=== PATIENT | female | born 1945 | race Caucasian/White ===

== ENCOUNTER → 2016-08-04 | Outpatient (CLI) | payer MEDICARE, MEDICAID | END | disposition home or self-care (01) | LOC: PCVCIMAG 07:58 | PROVIDERS: ATTEND Internal Medicine Cardiovascular Disease | DX: I77.9 Disorder of arteries and arterioles, unspecified (principal); I65.23 Occlusion and stenosis of bilateral carotid arteries; I73.9 Peripheral vascular disease, unspecified; I25.10 Atherosclerotic heart disease of native coronary artery without angina pectoris; I10 Essential (primary) hypertension; E78.00 Pure hypercholesterolemia, unspecified | CPT/HCPCS: 93005; 93880; 93923; 93925; G0463; 93924 ==

== ENCOUNTER → 2017-02-02 | Outpatient (CLI) | payer MEDICARE, MEDICAID ==
[~2017-02-02] MED LIST: REGADENOSON 0.4 MG/5 ML DISP.SYRIN. IV ONE
--- NOTE | 2017-02-02 11:48 | PCVCIMAG ---
APPROVED REPORT Exam: Nuclear Stress Test Indication: Dyspnea Patient Location: Out-Patient Stress Nurse: Naomi Bender RN, Nakita Greenfield RN [place] Tech:Tereso SilvaKEYLAB Ht: 5 ft 3 in Wt: 154 lbs BSA: 1.73 m2 HR: 78 bpm BP: 146/76 mmHg BMI: 27.2 Rhythm: NSR Medical History Medical History: Age, Hyperlipidemia, PVD,CVD, CAD, COPD, Former Smoker, HTN, Medications: ASA, Plavix, Protonix, Metoprolol (held 24 hours) Amlodipine, Lisinopril, Atorvastatin Allergies: NKDA Previous Cardiac Procedures: PCI Pretest Chest Pain Characteristics: No chest pain Exercise History: Sedentary Stress Test Details Stress Test: Pharmacologic stress testing performed using 0.4 mg of regadenoson per 5 mL given IV over 10 seconds. Reason for pharmacologic stress test: physical limitation. HR Resting HR: 78 bpmMax Heart Rate (APMHR): 149 bpm Max HR Achieved: 117 bpmTarget HR (85% APMHR): 126 bpm % of APMHR: 78 Recovery HR: 103 bpm BP Resting BP: 146/76 mmHg Max BP: 151/60 mmHg Recovery BP: 146/66 mmHg ECG Resting ECG: Sinus Rhythm Stress ECG: Sinus Rhythm ST Change: Non-ischemic Maximum ST Deviation: 0.5 mm Arrhythmia: None Recovery ECG: Sinus Rhythm Recovery Arrhythmia: None Clinical Reason for Termination: Completed protocol Stress Symptoms: Dyspnea Exercise duration: min 55 sec Exercise capacity: 1.0 METs Symptoms resolved during recovery. [place] EXAM: Myocardial Perfusion REST/STRESS Imaging Protocol: Rest Tc-99m/Stress Tc-99m 1 day Resting Data Rest SPECT myocardial perfusion imaging was performed in supine position 45 minutes following the intravenous injection of 11.6 mCi of Tc-99m Sestamibi. Time of rest injection: 0900 Date: 02/02/2017 Pharmacologic Stress Pharmacologic stress test was performed by injecting Regadenoson 0.4 mg IV push followed by the intravenous injection of 36 mCi of Tc-99m Sestamibi. Time of stress injection: 1015 Date: 02/02/2017 The images were gated to evaluate regional wall motion and calculate left ventricular ejection fraction. Study Quality Study: Good Study Data Post stress, the left ventricular ejection was 76%.. SSS: 2 SRS: 4 SDS: 0 TID = 0.94. Perfusion There is a small area of mildly reduced uptake in the distal segment of the inferoapical wall which is seen on the stress images as well as the resting images. This area thickens and moves normally and is most consistent with myocardial scar. Wall Motion Normal left ventricular wall motion. Clinical Findings: Nondiagnostic EKG Findings: Nonischemic Nuclear Conclusion There is a mild fixed defect in the distal inferoapical segment, possible incomplete infarct. This study is of low probability for inducible ischemia. There is normal global and segmental LV systolic function.
== END | disposition home or self-care (01) ==
LOC: PCVCIMAG 08:45
PROVIDERS: ATTEND Internal Medicine Cardiovascular Disease
DX: I25.10 Atherosclerotic heart disease of native coronary artery without angina pectoris (principal); I73.9 Peripheral vascular disease, unspecified; E78.5 Hyperlipidemia, unspecified; I10 Essential (primary) hypertension; J44.9 Chronic obstructive pulmonary disease, unspecified; K52.9 Noninfective gastroenteritis and colitis, unspecified; K21.9 Gastro-esophageal reflux disease without esophagitis; Z79.82 Long term (current) use of aspirin; Z87.891 Personal history of nicotine dependence; Z79.899 Other long term (current) drug therapy; Z90.49 Acquired absence of other specified parts of digestive tract; Z90.710 Acquired absence of both cervix and uterus; Z90.722 Acquired absence of ovaries, bilateral
CPT/HCPCS: 78452; 93017; A9500; G0463; J2785

== ENCOUNTER → 2017-11-15 | Outpatient (CLI) | payer MEDICARE, MEDICAID | END | disposition home or self-care (01) | LOC: PCVCIMAG 16:00 | DX: I25.10 Atherosclerotic heart disease of native coronary artery without angina pectoris (principal); I10 Essential (primary) hypertension; E78.00 Pure hypercholesterolemia, unspecified; K21.9 Gastro-esophageal reflux disease without esophagitis; I35.1 Nonrheumatic aortic (valve) insufficiency; Z79.899 Other long term (current) drug therapy; Z79.82 Long term (current) use of aspirin; Z87.891 Personal history of nicotine dependence | CPT/HCPCS: 93005; 93306; G0463 ==

== ENCOUNTER → 2017-12-05 | Outpatient (CLI) | payer MEDICARE, MEDICAID | END | disposition home or self-care (01) | LOC: PCVCIMAG 14:25 | DX: I73.9 Peripheral vascular disease, unspecified (principal); I77.9 Disorder of arteries and arterioles, unspecified; I25.10 Atherosclerotic heart disease of native coronary artery without angina pectoris; I10 Essential (primary) hypertension; J44.9 Chronic obstructive pulmonary disease, unspecified; E78.00 Pure hypercholesterolemia, unspecified; I35.1 Nonrheumatic aortic (valve) insufficiency; I70.0 Atherosclerosis of aorta; I71.2 Thoracic aortic aneurysm, without rupture; F17.210 Nicotine dependence, cigarettes, uncomplicated; Z79.899 Other long term (current) drug therapy; Z79.82 Long term (current) use of aspirin | CPT/HCPCS: 93923; 93925; G0463 ==

== ENCOUNTER → 2018-03-21 | Outpatient (CLI) | payer MEDICARE, MEDICAID | END | disposition home or self-care (01) | LOC: PCVCCLINIC 13:32 | PROVIDERS: ATTEND Nuclear Medicine Nuclear Cardiology | DX: I73.9 Peripheral vascular disease, unspecified (principal); I71.2 Thoracic aortic aneurysm, without rupture; I77.9 Disorder of arteries and arterioles, unspecified; I10 Essential (primary) hypertension; I25.10 Atherosclerotic heart disease of native coronary artery without angina pectoris; J44.9 Chronic obstructive pulmonary disease, unspecified; E78.00 Pure hypercholesterolemia, unspecified; F17.200 Nicotine dependence, unspecified, uncomplicated; Z79.82 Long term (current) use of aspirin | CPT/HCPCS: G0463 ==

== ENCOUNTER → 2018-12-21 | Outpatient (CLI) | payer MEDICARE, MEDICAID ==
--- NOTE | 2018-12-21 10:27 | PCVCIMAG ---
EXAM: BILATERAL CAROTID DUPLEX INDICATION: Carotid Occlusive Disease. FINDINGS: Doppler Measurements (centimeters per second): RIGHT: Peak CCA-110, Peak ECA-105, Diastolic ICA-23, Peak ICA-118, ICA/CCA Ratio-1.3. LEFT: Peak CCA-100, Peak ECA-137, Diastolic ICA-17, Peak ICA-163, ICA/CCA Ratio-1.6. RIGHT CAROTID: The carotid bulb has moderate plaque. The proximal internal carotid artery shows <40% stenosis. The common carotid artery shows no significant stenosis. The external carotid artery shows no significant stenosis. LEFT CAROTID: The carotid bulb has moderate plaque. The proximal internal carotid artery shows 60% stenosis. The common carotid artery shows no significant stenosis. The external carotid artery shows 40% stenosis. Antegrade flow in both vertebral arteries. IMPRESSION: <40% stenosis of the right internal carotid artery with moderate plaque. 60% stenosis of the left internal carotid artery with moderate plaque. No change since July 2016 study. LOC:[id number]
== END | disposition home or self-care (01) ==
LOC: PCVCCLINIC 09:25
PROVIDERS: ATTEND Nuclear Medicine Nuclear Cardiology
DX: I65.23 Occlusion and stenosis of bilateral carotid arteries (principal); I77.9 Disorder of arteries and arterioles, unspecified; F17.200 Nicotine dependence, unspecified, uncomplicated; E78.00 Pure hypercholesterolemia, unspecified
CPT/HCPCS: 93880; G0463

== ENCOUNTER → 2019-05-01 | Outpatient (CLI) | payer MEDICARE, MEDICAID ==
--- NOTE | 2019-05-01 11:48 | PCVCIMAG ---
APPROVED REPORT Imaging Protocol: Rest Tc-99m/Stress Tc-99m 1 day Study performed: 05/01/2019 09:30:12 Indication: Chest Pain, Dyspnea Patient Location: Out-Patient Stress Nurse: Nakita Greenfield RN, Naomi Bender RN [place] Tech:César SOFIA Blanco Ht: 5 ft 4 in Wt: 167 lbs BSA: 1.81 m2 HR: 83 bpm BP: 175/75 mmHg BMI: 28.66 Rhythm: Sinus Rhythm Medical History Medical History: PCI 2008, Age, HLP, HTN, PVD, COPD, CAD, Former Smoker Medications: Amlodipine, ASA, Atorvastatin, Plavix, Lisinopril, Metoprolol Allergies: No known drug allergies Exercise History: Sedentary Physical Disabilities: Back Meds Held (24 hrs): Metoprolol Resting Data Rest SPECT myocardial perfusion imaging was performed in supine position 45 minutes following the intravenous injection of 10.5 mCi of Tc-99m Sestamibi. Time of rest injection: 0855 Date: 05/01/2019 Administration Route: IV Administration Site: Right AC Pharmacologic Stress Pharmacologic stress test was performed by injecting Regadenoson 0.4 mg IV push over 10-15 seconds immediately followed by the intravenous injection of 32.4 mCi of Tc-99m Sestamibi. Time of stress injection: 1000 Date: 05/01/2019 Administration Route: IV Administration Site: Right AC Gated Stress SPECT was performed 45 minutes after stress injection. The images were gated to evaluate regional wall motion and calculate left ventricular ejection fraction. Stress Test Details Stress Test: Pharmacologic stress testing performed using 0.4 mg of regadenoson per 5 mL given IV over 10 seconds. Reason for pharmacologic stress test: chronic low back pain. HRMax Heart Rate (APMHR): 147 bpm Resting HR: 83 bpmTarget HR (85% APMHR): 124 bpm Max HR Achieved: 113 bpm % of APMHR: 76 Recovery HR: 106 bpm BP Resting BP: 175/75 mmHg Max BP: 155/72 mmHg Recovery BP: 156/72 mmHg ECG Resting ECG: Sinus Rhythm Stress ECG: Sinus Tachycardia ST Change: Non-ischemic Arrhythmia: VPC's Recovery ECG: Sinus Tachycardia Clinical Reason for Termination: Completed protocol Stress Symptoms: Dyspnea Symptoms resolved with caffeine. Study Quality Study: Good Artifact: Mild Diaphragmatic artifact Study Data Post stress, the left ventricular ejection was 70%.. SSS: 0 SRS: 1 SDS: 0 TID = 0.84. Perfusion There is a small area of mildly reduced uptake in the apical segment of the inferior wall which is seen on the stress images as well as the resting images. This area thickens and moves normally and is most consistent with attenuation artifact. Wall Motion Normal left ventricular wall motion. Nuclear Conclusion ECG Findings: negative for ischemia Clinical Findings: non-diagnostic Nuclear Findings: negative for ischemia Exercise Capacity: not assessed Left Ventricular Function: normal Risk Study: low This study is of low probability for inducible ischemia or prior infarct. Normal global and segmental LV systolic function. Artifact: Mild Diaphragmatic artifact
== END | disposition home or self-care (01) ==
LOC: PCVCIMAG 09:04
PROVIDERS: ATTEND Internal Medicine Cardiovascular Disease
DX: I25.10 Atherosclerotic heart disease of native coronary artery without angina pectoris (principal); I10 Essential (primary) hypertension; R06.00 Dyspnea, unspecified; E78.00 Pure hypercholesterolemia, unspecified; I73.9 Peripheral vascular disease, unspecified; Z79.82 Long term (current) use of aspirin
CPT/HCPCS: 78452; 93017; A9500; G0463; J2785